=== PATIENT | male | born 1955 | race Caucasian/White ===

== ENCOUNTER 2023-07-25 12:41 | Emergency (ER) | payer MEDICARE, SELFPAY ==
[2023-07-25 12:50] VITALS: BP 155/80; PULSE 68; RESP 20; TEMP 36.8; O2SAT 96
--- NOTE | 2023-07-25 13:14 | ED.GENADULT ---
HPI - General Adult General Chief complaint: Extremity Injury, Lower Stated complaint: left knee pain Time Seen by Provider: 07/25/23 13:14 Source: patient, RN notes reviewed and old records reviewed Mode of arrival: ambulatory Limitations: no limitations History of Present Illness HPI narrative: 68-year-old male to [facility] with complaint left knee pain. Patient endorses seeing his PCP recently and having an x-ray completed within the last week. Patient states that his provider informed him that there were no acute findings and findings of old injury and arthritis. Patient states that his PCP advised him to alternate Tylenol and ibuprofen as needed for relief. Patient states that pain is intolerable. Patient endorses that he called Ortho this morning and was told that he could not be seen until August 07. Patient states he cannot wait that long for relief from pain. patient denies recent history, numbness, tingling. 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 Patient reports history chronic back pain diabetes mellitus, restless leg syndrome, arthritis. Patient in no acute distress in exam room. Patient able to ambulate to exam room with slow and steady gait. Related Data Home Medications Medication Instructions Recorded Confirmed diclofenac sodium 75 mg 75 mg PO BID 07/25/23 07/25/23 tablet,delayed release labetalol 100 mg tablet 100 mg PO BID 07/25/23 07/25/23 losartan 50 mg tablet 50 mg PO DAILY 07/25/23 07/25/23 metformin 500 mg tablet 500 mg PO BID 07/25/23 07/25/23 pramipexole 0.5 mg tablet 0.5 mg PO DAILY 07/25/23 07/25/23 sertraline 100 mg tablet 100 mg PO DAILY 07/25/23 07/25/23 tramadol 50 mg tablet 50 mg PO Q6-8H 07/25/23 07/25/23 triamterene 37.5 37.5 cap PO DAILY 07/25/23 07/25/23 mg-hydrochlorothiazide 25 mg capsule zolpidem 10 mg tablet 10 mg PO DAILY 07/25/23 07/25/23 Allergies Allergy/AdvReac Type Severity Reaction Status Date / Time codeine Allergy Gastrointestinal Verified 07/25/23 12:58 Upset gabapentin Allergy Other Verified 07/25/23 12:58 Review of Systems Review of Systems: All systems reviewed & are unremarkable except as noted in HPI and below Constitutional: Constitutional: Reports no additional constitutional complaints Eyes: Eyes: Reports no additional eye complaints ENT: Reports system reviewed and no additional complaints, except as documented Cardiovascular: Cardiovascular: Reports no additional cardiovascular complaints, Denies chest pain and Denies dyspnea Respiratory: Respiratory: Reports no additional respiratory complaints, Denies cough and Denies dyspnea Musculoskeletal: Musculoskeletal: Reports as per HPI and Reports arthralgias (left knee) Neurologic: Reports system reviewed and no additional complaints, except as documented Psychiatric: Psychiatric: Reports no additional psychiatric complaints PMFSH Comments At the time of my signature, I reviewed and agree with the nursing past medical, surgical, social, and family history. There is no relevant family history pertinent to the patient complaint. Exam Const: General: cooperative, healthy appearing, comfortable, no acute distress, alert and well nourished Nutritional Appearance: well nourished Orientation/consciousness: patient oriented x3 Limitations: no limitations HENMT: Head: normal to inspection Ears: external ears normal Face/Nose/Sinus: Normal external nose present, Normal nares present, normal facial exam, No erythema and No edema Face and sinus: normal facial exam, no erythema and no edema Mouth: Yes Normal oral and palatal mucosa present Eyes: General: appearance normal, both eyes and all related structures Neck: Neck: normal visual inspection, full ROM and no meningeal signs Lymphatic: no lymphadenopathy noted and no lymphedema noted Chest: Chest palpation & inspection: normal inspection of the chest Resp: Effort & Inspection: normal respira
[2023-07-25] MEDS: KETOROLAC (*BKC) 60 MG/2 ML VIAL IM (13:25)
== END 2023-07-25 14:00 | disposition home or self-care (01) ==
PROVIDERS: Emergency Provider Nurse Practitioner Family; PCP Internal Medicine
DX: M25.562 Pain in left knee (principal); I10 Essential (primary) hypertension; G25.81 Restless legs syndrome; E11.40 Type 2 diabetes mellitus with diabetic neuropathy, unspecified; F32.A Depression, unspecified
CPT/HCPCS: 96372; 99213; G0463; J1885